=== PATIENT | female | born 1975 | race Caucasian/White ===

== ENCOUNTER 2019-01-16 07:09 | Day surgery (SDC) | payer OTHER ==
[2019-01-15 08:20] VITALS: BMI 28.7
[2019-01-16 08:43] VITALS: TEMP 98.7
[2019-01-16 09:25] VITALS: PULSE 60
[2019-01-16 09:53] VITALS: BP 123/83
--- NOTE | 2019-01-17 15:25 | PATH ---
Surgical Pathology Report Patient Name: ISSA KNOTT [facility]. Rec. #: [id number] /Age/Gender: 1975 (Age: 43) / F Account: [id number] Location: U-ENDOSCOPY Taken: 01/16/2019 Received: 01/16/2019 Reported: 01/17/2019 Physicians: Deni Alberts D.O. Specimen(s) Received BX CECUM Clinical History Anemia, family history of colon cancer Postoperative diagnosis: Melanosis coli, anemia Final Diagnosis CECUM, BIOPSY: COLONIC MUCOSA SHOWING MELANOSIS COLI. Electronically Signed Joya Guallpa M.D. Gross Description Received in formalin, labeled "biopsy cecum" are 2 wilson, irregular portions of soft tissue averaging 0.2 cm. in greatest dimension. The specimens are submitted in toto in one cassette. 01/16/201901/16/2019
== END 2019-01-16 09:30 | disposition home or self-care (01) ==
LOC: JASU-ENDO 07:09
PROVIDERS: ATTEND Internal Medicine Gastroenterology
PROC: 0DBH8ZX Excision of Cecum, Via Natural or Artificial Opening Endoscopic, Diagnostic (ICD-10-PCS; principal; 2019-01-16 08:00)
DX: Z12.11 Encounter for screening for malignant neoplasm of colon (principal); Z80.0 Family history of malignant neoplasm of digestive organs; D64.9 Anemia, unspecified; K64.8 Other hemorrhoids; K63.89 Other specified diseases of intestine
CPT/HCPCS: 81025; 88305-TC

== ENCOUNTER 2023-11-01 04:15 | Day surgery (SDC) | payer OTHER ==
[2023-10-28 14:38] VITALS: BMI 27.5
[2023-11-01 10:00] VITALS: RESP 16
[2023-11-01 12:19] VITALS: TEMP 98.3
[2023-11-01 12:54] VITALS: BP 126/63; PULSE 52
== END 2023-11-01 13:10 | disposition home or self-care (01) ==
LOC: JASU-ENDO 04:15
PROVIDERS: ATTEND Internal Medicine Gastroenterology
PROC: 0DJD8ZZ Inspection of Lower Intestinal Tract, Via Natural or Artificial Opening Endoscopic (ICD-10-PCS; principal; 2023-11-01 10:45)
DX: Z12.11 Encounter for screening for malignant neoplasm of colon (principal); K64.8 Other hemorrhoids; K57.30 Diverticulosis of large intestine without perforation or abscess without bleeding; Z80.0 Family history of malignant neoplasm of digestive organs
CPT/HCPCS: 81025